=== PATIENT | male | born 1965 | race Caucasian/White ===

== ENCOUNTER 2017-05-21 09:23 | Emergency (ER) | payer OTHER ==
[~2017-05-21] VITALS: Ht 188 cm; Wt 125.6 kg
[2017-05-21 09:49] LABS: LYMPH # 1.3 K/mm3 (0.7-4.5); LYMPH % 26.9 % (10-50)
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
[2017-05-21 10:04] LABS: HEMOGLOBIN 11.8 g/dL (14.1-18.0)
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
[2017-05-21 11:18] VITALS: BP 156/84
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
--- OUTSIDE RECORDS SUMMARY | 2017-05-28 02:32 | External Medical Summary Rpt | CCD ---
Demographics Preferred Language Polish Marital Status Unknown Alevism Affiliation Unknown Race Unknown Ethnic Group Unknown Author Author , PAM OROZCO Address Unknown Phone Immunization No patient found.
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
--- OUTSIDE RECORDS SUMMARY | 2017-05-28 02:32 | External Medical Summary Rpt | CCD ---
Author Author , PAM OROZCO Address Unknown Phone [email or web address] Purpose Continuity of Care Document - 10-29-2016 through 2016 Results Labs Lab Lab Date Result Refere Interp Status Commen Order Detail nces retati t Range on Lactate Bld-sCnc (05-11-2017 10:41) Lactate 05-11-2 0.9 complet 017 mmol/L ed Bld-sCn 10:41 c ESR Bld Qn (03-26-2017 15:22) ESR Bld 03-26-2 5 mm/hr 0-11 complet Qn 017 ed 15:22 CRP SerPl-mCnc (03-26-2017 15:22) CRP --2 0.1 0-0.9 complet SerPl-m 017 mg/dL ed Cnc 15:22 CRP SerPl-mCnc (02-02-2017 10:04) CRP 02-02-2 0.1 0-0.9 complet SerPl-m 017 mg/dL ed Cnc 10:04 ESR Bld Qn (02-02-2017 10:04) ESR Bld 02-02-2 8 mm/hr 0-11 complet Qn 017 ed 10:04 Vit D+metab SerPl-mCnc (11-25-2016 09:46) Vit -12-2 26 30-80 complet D+metab 017 ng/mL ed 09:46 SerPl-m Cnc ESR Bld Qn (10-29-2016 10:09) ESR Bld -16-2 9 mm/hr 0-11 complet Qn 017 ed 10:09 CRP SerPl-mCnc (10-29-2016 10:09) CRP -16-2 < 0.1 0-0.9 complet SerPl-m 017 mg/dL ed Cnc 10:09
--- OUTSIDE RECORDS SUMMARY | 2017-05-28 02:32 | External Medical Summary Rpt | CCD ---
Demographics Preferred Language Nepali Marital Status Unknown Presybeterian Affiliation Unknown Race Unknown Ethnic Group Unknown Author Author , PAM OROZCO Address Unknown Phone Immunization No patient found.
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
--- OUTSIDE RECORDS SUMMARY | 2017-05-28 02:32 | External Medical Summary Rpt | CCD ---
Author Author Conduent Organization Conduent Address Unknown Phone Unavailable Purpose Continuity of Care Document - through 2016
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
--- OUTSIDE RECORDS SUMMARY | 2017-05-28 02:32 | External Medical Summary Rpt | CCD ---
Author Author , PAM OROZCO Address Unknown Phone [email or web address] Purpose Continuity of Care Document - 10-29-2016 [...]
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
--- OUTSIDE RECORDS SUMMARY | 2017-05-28 02:32 | External Medical Summary Rpt ---
Author Author [employer], [employer] Organization [employer] Address Unknown Phone Unavailable Results Fibrin D-dimer FEU [Mass/volume] in Platelet poor plasma Observa Value Referen Units Interpr Notes Date tion ce etation Range IS PATIENT ON ANTICOAGULANTS? Y LIST ANTICOAGULANTS: ENOXAPARIN PTT RESULTS MUST BE CALLED IF PT ON HEPARIN!!! N FIRST SAMPLE HEMOLYZED.REDRAWN Fibrin 0 - 400 ng/mL High May 21 D-dimer alert NOTIFICAT 2016 FEU ION 10:00 AM [Mass/vol RESULT ume] in The Platelet D-Dimer poor values plasma are presented in units of mass(ng/m L) ofD-Dimer units(DDU ).This test has been FDA approved as an aid in the assessmen tand evaluatio n of suspected DIC, and thromboem bolic eventsinc luding PE and DVT. However, it does not have approvalf or cut-off values for the exclusion of these condition s. INR in Blood by Coagulation assay Observa Value Referen Units Interpr Notes Date tion ce etation Range IS PATIENT ON ANTICOAGULANTS? Y LIST ANTICOAGULANTS: ENOXAPARIN PTT RESULTS MUST BE CALLED IF PT ON HEPARIN!!! 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 Y LIST ANTICOAGULANTS: ENOXAPARIN PTT RESULTS MUST BE CALLED IF PT ON HEPARIN!!! N FIRST SAMPLE HEMOLYZED.REDRAWN Activated 23.6 - SECONDS Normal No Oct 6 partial 34.0 informati 2017 thrombpla on in 10:00 AM stin time source (aPTT) data in Platelet poor plasma by Coagulati on assay Comprehensive metabolic 2000 panel in Serum or Plasma Observa Value Referen Units Interpr Notes Date tion ce etation Range FIRST SAMPLE HEMOLYZED.REDRAWN Albumin/G 1.1 - 1.8 No Low No Oct 6 lobulin informati informati 2017 [Mass on in on in 10:00 AM ratio] in source source Serum or data data Plasma Albumin 3.4 - 5.0 gm/dL Normal No Oct 6 [Mass/vol informati 2016 ume] in on in 10:00 AM Serum or source Plasma data Alkaline 46 - 116 U/L High No Oct 6 phosphata informati 2017 se on in 10:00 AM [Enzymati source c data activity/ volume] in Serum or Plasma Bilirubin 0.2 - 1.0 mg/dL Normal No Oct 6 .total informati 2016 [Mass/vol on in 10:00 AM ume] in source Serum or data Plasma Urea 7 - 18 mg/dL Normal No Oct 6 nitrogen informati 2016 [Mass/vol on in 10:00 AM ume] in source Serum or data Plasma Calcium 8.5 - mg/dL Normal No Oct 6 [Mass/vol 10.1 informati 2016 ume] in on in 10:00 AM Serum or source Plasma data Chloride 98 - 107 mmoL/L Normal No Oct 6 [Moles/vo informati 2017 lume] in on in 10:00 AM Serum or source Plasma data Carbon 21.0 - mmoL/L Normal No Oct 6 dioxide, 32.0 informati 2017 total on in 10:00 AM [Moles/vo source lume] in data Serum or Plasma Creatinin 0.70 - mg/dL Normal No Oct 6 e 1.30 informati 2017 [Mass/vol on in 10:00 AM ume] in source Serum or data Plasma Creatinin 50 - 200 ML/MIN Normal No Oct 6 e renal informati 2017 clearance on in 10:00 AM source predicted data by Cockcroft -Gault formula Estimated >60 ML/MIN No REFERENCE May 21 informati RANGE: 2017 glomerula on in >60 10:00 AM r source ML/MIN/1. filtratio data 73 SQUARE n rate METERSIf (GF this patient is -A merican, then multiply theresult by 1.210. Globulin 1.3 - 3.2 gm/dL High No May 21 [Mass/vol informati 2016 ume] in on in 10:00 AM Serum source data Glucose 74 - 106 mg/dL Normal No May 6 [Mass/vol informati 2016 ume] in on in 10:00 AM Serum or source Plasma data Potassium 3.5 - 5.1 mmoL/L Normal No May 212016 [Moles/vo on in 10:00 AM lume] in source Serum or data Plasma Sodium 136 - 145 mmoL/L Normal No May 21 [Moles/vo informati 2016 lume] in on in 10:00 AM Serum or source Plasma data Aspartate 15 - 37 U/L High No May 212016 aminotran on in 10:00 AM sferase source [Enzymati data c activity/ volume] in Serum or Plasma Alanine 12 - 78 U/L High No May 21 aminotran 2016 sferase on in 10:00 AM [Enzymati source c data activity/ volume] in Serum or Plasma Protein 6.4 - 8.2 gm/dL Normal No May 6 [Mass/vol informati 2016 ume] in on in 10:00 AM Serum or source Plasma data CBC W Auto Differential panel in Blood Observa Value Referen Units Interpr Notes Date tion ce etation Range Basophils 0 - 0.2 K/MM3 Normal No May 212016 9:40 [#/volume on in AM ] in source Blood by data Automated count Basophils 0.1 - 2.0 % Normal No May 21 informati 2016 9:40 leukocyte on in AM s in source Blood by data Automated count Eosinophi 0.0 - 0.4 K/mm3 Normal No May 21 ls informati 2016 9:40 [#/volume on in AM ] in source Blood by data Automated count Eosinophi 0.1 - % Normal No May 21 ls/100 12.0 informati 2016 9:40 leukocyte on in AM s in source Blood by data Automated count Granulocy 1.3 - 8.0 K/mm3 Normal No May 6 alexis informati 2017 9:40 [#/volume on in AM ] in source Blood by data Automated count Granulocy 37.0 - % Normal No May 6 alexis/100 80.0 informati 2017 9:40 leukocyte on in AM s in source Blood by data Automated count Hematocri 42.0 - % Low No May 6 t [Volume 52.0 informati 2016 9:40 on in AM Fraction] source of Blood data Hemoglobi 14.1 - g/dL Low No May 6 n 18.0 informati 2017 9:40 [Mass/vol on in AM ume] in source Blood data Lymphocyt 0.7 - 4.5 K/mm3 Normal No May 21 es informati 2017 9:40 [#/volume on in AM ] in source Unspecifi data ed specimen by Automated count Lymphocyt 10 - 50 % Normal No May 21 es informati 2016 9:40 [#/volume on in AM ] in source Unspecifi data ed specimen by Automated count Erythrocy 27 - 31.2 pg High No May 6 te mean informati 2016 9:40 corpuscul on in AM ar source hemoglobi data n [Entitic mass] Erythrocy 31.8 - g/dl Normal No May 21 te mean 35.4 informati 2017 9:40 corpuscul on in AM ar source hemoglobi data n concentra tion [Mass/vol ume] by Automated count Erythrocy 82.2 - fl High No May 6 te mean 97.8 informati 2017 9:40 corpuscul on in AM ar volume source [Entitic data volume] by Automated count Monocytes 0.1 - 1.0 K/mm3 Normal No May 21 informati 2017 9:40 [#/volume on in AM ] in source Blood by data Automated count Monocytes 1.7 - 9.3 % Normal No May 6 /100 informati 2017 9:40 leukocyte on in AM s in source Blood by data Automated count Platelet 7.4 - fl Normal No May 6 mean 10.4 informati 2017 9:40 volume on in AM [Entitic source volume] data in Blood by Automated count Platelets 142 - 424 K/mm3 High No Oct 6 informati 2017 9:40 [#/volume on in AM ] in source Blood data Erythrocy 4.6 - 6.2 M/mm3 Low No Oct 6 alexis informati 2017 9:40 [#/volume on in AM ] in source Amniotic data fluid Erythrocy 11.5 - % Normal No Oct 6 te 17.5 informati 2017 9:40 distribut on in AM ion width source [Entitic data volume] by Automated count Leukocyte 4.8 - K/MM3 Low No Oct 6 s 10.8 informati 2017 9:40 [#/volume on in AM ] in source Blood data Erythrocyte sedimentation rate by Westergren method Observa Value Referen Units Interpr Notes Date tion ce etation Range Erythrocy 0 - 15 mm/hr High No May 6 te informati 2017 9:40 sedimenta on in AM tion rate source by data Westergre n method
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
== END 2017-05-21 11:19 | disposition home or self-care (01) ==
LOC: ER 09:23
PROVIDERS: Emergency Medicine
DX: S80.12XA Contusion of left lower leg, initial encounter (principal); V03.09XA Pedestrian with other conveyance injured in collision with car, pick-up truck or van in nontraffic accident, initial encounter; Y93.H2 Activity, gardening and landscaping; Y92.9 Unspecified place or not applicable